=== PATIENT | female | born 1970 | race Caucasian/White ===

== ENCOUNTER 2019-11-20 11:17 | Emergency (ER) | payer MEDICAID ==
[~2019-11-20] VITALS: Ht 157.5 cm; Wt 73.6 kg
[2019-11-20 11:35] VITALS: Ht 157.5 cm; Wt 73.6 kg
[2019-11-20 12:39] LABS: BASOPHILS 0 % (0-2); EOSINOPHILS 0.4 % (0-7); HEMATOCRIT 37.4 % (36.0-48.0); HEMOGLOBIN 12.6 g/dL (12-16); IMMATURE GRANULOCYTES 0.2 % (0-5); LYMPHOCYTES 28.4 % (15-50); MCHC 33.7 g/dL (31.0-37.0); MCV 91.9 fL (80.0-100.0); MEAN PLATELET VOLUME 9.4 fL (7.4-10.4); MONOCYTES 10.3 % (2-11); NEUTROPHILS 60.7 % (40-80); RBC 4.07 10x6/uL (4.00-5.40); RDW 12.8 % (11.5-14.5); WBC 5.5 10x3/uL (4.8-10.8)
[2019-11-20 12:40] LABS: PLATELET COUNT 169 10x3/uL (130-400)
[2019-11-20 13:05] LABS: CALC OSMOLALITY 274 mosm/kg (275-300); CALCIUM 8.6 mg/dL (8.5-10.1); CARBON DIOXIDE 25.5 mmol/L (21.0-32.0); CHLORIDE - SERUM 101 mmol/L (98-107); CREATININE - SERUM 0.9 mg/dL (0.6-1.3); GLUCOSE 77 mg/dL (74-106); POTASSIUM - SERUM 3.4 mmol/L (3.5-5.1); SODIUM 137 mmol/L (136-145); UREA NITROGEN 17 mg/dL (7-18); eGFR NON AFRICAN AMERICAN 70 mL/min (90-120)
[2019-11-20 13:10] LABS: ALBUMIN 3.9 g/dL (3.4-5.0); ALKALINE PHOSPHATASE 69 U/L (30-120); ALT (SGPT) 35 U/L (10-68); BILIRUBIN - TOTAL 0.42 mg/dL (0.2-1.3); PROTEIN - SERUM 7.2 g/dL (6.4-8.2)
[2019-11-20 13:13] LABS: C-REACTIVE PROTEIN < 0.2 mg/dL (0.0-0.9)
[2019-11-20] MEDS ORDERED: CYCLOBENZAPRINE10 MG PO (13:39)
[2019-11-20] MEDS ORDERED: EC-NAPROSYN500 MG PO (13:39)
[2019-11-20 13:44] VITALS: BP 131/69
== END 2019-11-20 13:49 | disposition home or self-care (01) ==
LOC: D.ER 11:17
PROVIDERS: Family Medicine
DX: S39.012A Strain of muscle, fascia and tendon of lower back, initial encounter (principal); R51 Headache; M62.830 Muscle spasm of back; X50.9XXA Other and unspecified overexertion or strenuous movements or postures, initial encounter; Y93.9 Activity, unspecified; Y92.9 Unspecified place or not applicable

== ENCOUNTER 2019-12-20 05:11 | Day surgery (SDC) | payer MEDICAID ==
[~2019-12-20] VITALS: Ht 157.5 cm; Wt 77.1 kg
[~2019-12-20 05:11] MED LIST: AMOXICILLIN125 MG; CYCLOBENZAPRINE10 MG PO; EC-NAPROSYN500 MG PO; GABAPENTIN300 MG PO; GEODON60 MG PO; LIPITOR20 MG PO; LITHIUM CARBON300 MG PO; MOBIC7.5 MG PO; VITAMIN D5000 UNI1 PO; XANAX1 MG PO; ZOLOFT100 MG PO
[2019-12-20] MEDS ORDERED: METHOCARBAMOL750 MG (05:12)
[2019-12-20] MEDS ORDERED: VOLTAREN75 MG PO (05:12)
[2019-12-20 05:35] LABS: HEMATOCRIT 38.8 % (36.0-48.0); HEMOGLOBIN 13.3 g/dL (12-16); MCH 31.6 pg (26.0-34.0); MCHC 34.3 g/dL (31.0-37.0); MCV 92.2 fL (80.0-100.0); MEAN PLATELET VOLUME 9.3 fL (7.4-10.4); RBC 4.21 10x6/uL (4.00-5.40); RDW 12.8 % (11.5-14.5); WBC 6.3 10x3/uL (4.8-10.8)
[2019-12-20 06:24] VITALS: BP 142/95; Ht 157.5 cm; Wt 77.1 kg
[2019-12-20 06:38] LABS: HCG URINE NEGATIVE (NEGATIVE)
[2019-12-20] MEDS ORDERED: OXYCODONE HCL5 M1 PO (07:47)
[2019-12-20] MEDS ORDERED: DURICEF500 MG PO (07:47)
--- NOTE | 2019-12-20 08:48 | NUR ---
0840 PERCOCET 5 MG FOR PAIN. [facility] CALLED IN TO [facility] PER DR. PHILLIPS
--- NOTE | 2019-12-20 15:47 | OP ---
PATIENT NAME: CHERYL RICHEY MEDICAL RECORD: [id number] :68 LOCATION:[facility] ADMISSION DATE: SURGEON: BALTAZAR PHILLIPS DO DATE OF OPERATION: 12/20/2019 PROCEDURE PERFORMED: Left endoscopic carpal tunnel release. PREOPERATIVE DIAGNOSIS: Left carpal tunnel syndrome. POSTOPERATIVE DIAGNOSIS: Left carpal tunnel syndrome. INDICATIONS: Ms. Cheryl Richey is a 49-year-old female who has had left hand pain and numbness. This is waking her up at night and goes to sleep when she drives and does anything really. She was tired of dealing with the pain and wanted something done surgically. On exam, she had a carpal tunnel syndrome with carpal tunnel compression test. 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 SURGEON: Baltazar Phillips DO DESCRIPTION OF PROCEDURE: The patient was taken to the operative suite, laid in supine position, given general anesthetic, given 2 grams of Ancef preoperatively and sedated and LMA was placed. The left upper extremity was then prepped and draped in sterile fashion. Timeout was performed. Everyone was in agreement with correct side, site, patient and procedure. I then began by exsanguinating the left upper extremity with an Esmarch and a tourniquet was inflated to 250 mmHg and was up for 11 minutes. The incision was made centered over the palmaris longus tendon, approximately a centimeter in length. The skin was incised and then Ragnells were used to bluntly dissect down to the median nerve. The fascia from the forearm was released from distal to proximal and then the carpal tunnel was entered distally, first with a hook and then dilators and the sheath put in and the camera was put in. The transverse carpal ligament was viewed and cleaned off with a rasp and a probe to ensure there was no transligamentous nerve branch and there did not appear to be. I then brought the blade and raised it up and transected the transverse carpal ligament. Fat then herniated down into the carpal tunnel, indicating a good release. We then removed the sheath and blade and the camera and then with a Ragnell and scissor spread any remaining fibers left in the transverse carpal ligament and then the tourniquet was let down. I then injected the area with 0.25% Marcaine with epinephrine 10 mL of it. The skin was then closed by Jamil Cornell, certified surgical planning assistant with 5-0 Monocryl in an inverted interrupted fashion, Steri-Strips, Adaptic, 4 x 4, Kerlix and a Coban was lightly wrapped on the wrist. She was then awakened and taken to recovery in stable condition. BLOOD LOSS: Minimal. COMPLICATIONS: None. TRANSINT:[id number] Voice Confirmation ID: [id number] DOCUMENT ID: [id number] OPERATIVE REPORT [id number] CHERYL RICHEY MICHAEL D, DO at 1547 CC: [id number] DICTATION DATE: 12/20/19825 STOPPER SETTER: 12/20/19 1539 [facility] 12/20/19 [facility] [address] [place] [address]
== END 2019-12-20 09:20 | disposition home or self-care (01) ==
LOC: D.OPS 05:11 → D.PAN 07:00 → D.OPS 09:00 → D.PAN 09:00 → D.OPS 09:20
PROVIDERS: Anesthesiology; ATTEND Orthopaedic Surgery
DX: G56.02 Carpal tunnel syndrome, left upper limb (principal); M17.0 Bilateral primary osteoarthritis of knee

== ENCOUNTER 2020-01-20 22:21 | Inpatient (IN) | payer MEDICAID ==
[~2020-01-20] VITALS: Ht 157.5 cm; Wt 80.3 kg
[~2020-01-20 22:21] MED LIST changes: +DURICEF500 MG PO; +METHOCARBAMOL750 MG; +OXYCODONE HCL5 M1 PO; +VOLTAREN75 MG PO
--- NOTE | 2020-01-20 23:29 | NUR ---
DR. WIGGINS NOTIFIED AND REVIEWED PT'S BEHAVIOR AND ASSESSMENT RESULTS. PT IS A LOW RISK PER DR. WIGGINS. DR. WIGGINS STATED TO GIVE RESOURCES TO PT AT TIME OF DISCHARGE. NO FURTHER ORDERS AT THIS TIME. RESOURCES REVIEWED WITH PT AND SHE VERBALIZED UNDERSTANDING.
[2020-01-20 23:43] LABS: HEMATOCRIT 33.8 % (36.0-48.0); HEMOGLOBIN 11.8 g/dL (12-16); LYMPHOCYTES 22.1 % (15-50); MCHC 34.9 g/dL (31.0-37.0); MCV 91.6 fL (80.0-100.0); MEAN PLATELET VOLUME 9.4 fL (7.4-10.4); NEUTROPHILS 70.4 % (40-80); PLATELET COUNT 181 10x3/uL (130-400); RBC 3.69 10x6/uL (4.00-5.40); RDW 12.4 % (11.5-14.5); WBC 8.1 10x3/uL (4.8-10.8)
[2020-01-20 23:54] LABS: ALBUMIN 3.3 g/dL (3.4-5.0); ANION GAP 11.7 mmol/L (8-16); BILIRUBIN - TOTAL 0.34 mg/dL (0.2-1.3); CALCIUM 8.8 mg/dL (8.5-10.1); CARBON DIOXIDE 24.2 mmol/L (21.0-32.0); CREATININE - SERUM 0.9 mg/dL (0.6-1.3); PROTEIN - SERUM 6.9 g/dL (6.4-8.2)
[2020-01-20 23:57] LABS: POTASSIUM - SERUM 2.9 mmol/L (3.5-5.1)
[2020-01-21] VITALS (7 sets, daily range): BP systolic 94–129; BP diastolic 52–69; Ht 157.5 cm; Wt 80.3 kg
--- NOTE | 2020-01-21 00:50 | NUR ---
PT ARRIVED ON UNIT VIA WHEELCHAIR ESCORTED BY ER NURSE AND SPOUSE. ORIENTED TO ROOM AND CALL LIGHT. ASSISTED PT IN CHANGING INTO HER OWN GOWN. IV TO RIGHT AC PATENT WITH NS INFUSING AT 75 ML/HR, AND VANC IVPB INFUSING. LEFT ELBOW SWOLLEN AND WARM TO THE TOUCH. WILL MONITOR FOR NEEDS.
--- NOTE | 2020-01-21 00:59 | NUR ---
GAVE VIT D3 50,000 DOSE (X10 50 CAPSULES) PT TAKES THIS DOSE WEEKLY AND IS DUE.
--- NOTE | 2020-01-21 01:14 | NUR ---
GAVE 40 MEQ K DUR PER THE ELECTOLYTE PROTOCOL. WILL RE-CHECK LEVEL IN AM.
--- NOTE | 2020-01-21 01:52 | NUR ---
ADMISSION ASSESSMENT AND HISTORY COMPLETE.
--- NOTE | 2020-01-21 01:55 | NUR ---
PT STATES THAT "SHE DOSN'T WANT TO BE RESUSCITATED". I TOLD HER TO TALK TO MD IN AM FOR THAT ORDER.
[2020-01-21 06:53] LABS: BASOPHILS 0 % (0-2); EOSINOPHILS 1.3 % (0-7); HEMATOCRIT 33.2 % (36.0-48.0); HEMOGLOBIN 11.5 g/dL (12-16); IMMATURE GRANULOCYTES 0.2 % (0-5); MCH 32.1 pg (26.0-34.0); MCHC 34.6 g/dL (31.0-37.0); MCV 92.7 fL (80.0-100.0); MEAN PLATELET VOLUME 9.8 fL (7.4-10.4); MONOCYTES 10.7 % (2-11); NEUTROPHILS 65.8 % (40-80); PLATELET COUNT 165 10x3/uL (130-400); RBC 3.58 10x6/uL (4.00-5.40); RDW 12.8 % (11.5-14.5); WBC 6.2 10x3/uL (4.8-10.8)
[2020-01-21 07:11] LABS: ALBUMIN 2.8 g/dL (3.4-5.0); ALKALINE PHOSPHATASE 61 U/L (30-120); ALT (SGPT) 27 U/L (10-68); CALC OSMOLALITY 279 mosm/kg (275-300); CALCIUM 8.1 mg/dL (8.5-10.1); CARBON DIOXIDE 26.5 mmol/L (21.0-32.0); CHLORIDE - SERUM 107 mmol/L (98-107); CREATININE - SERUM 0.8 mg/dL (0.6-1.3); GLUCOSE 94 mg/dL (74-106); MAGNESIUM - SERUM 2.1 mg/dL (1.8-2.4); PHOSPHOROUS 5.2 mg/dL (2.5-4.9); PROTEIN - SERUM 5.6 g/dL (6.4-8.2); SODIUM 140 mmol/L (136-145); UREA NITROGEN 16 mg/dL (7-18); eGFR NON AFRICAN AMERICAN 80 mL/min (90-120)
--- NOTE | 2020-01-21 08:11 | NUR ---
ALERT AND ORIENTED. LUNGS CLEAR BILATERALLY. HEART SOUNDS S1 AND S2 HEARD IN ALL GUZMAN. BOWEL SOUNDS ACTIVE X 4. IV TO RIGHT AC PATENT WITHOUT REDNESS. DENIES NEEDS. BED LOW. CALL STALLINGS AND PERSONAL ITEMS IN REACH. WILL CONTINUE TO MONITOR.
--- NOTE | 2020-01-21 12:17 | NUR ---
PATIENT SLEEPING. WILL CONTINUE TO MONITOR.
--- NOTE | 2020-01-21 17:14 | NUR ---
PATIENT STATES WANTS XRAY OF BACK "TO MAKE SURE BACK IS NOT BROKEN." ALYSSA PRUITT NOTIFIED. STATES NOT ORDERING XRAY AT THIS TIME.
--- NOTE | 2020-01-21 20:00 | NUR ---
RESTING IN BED EYES CLOSED, AROUSED EASILY BUT REMAINS SLEEPY, SEE SHIFT ASSESSMENT, CALL LIGHT IN REACH, NO C/O OR REQUEST AT THIS TIME
--- NOTE | 2020-01-21 22:00 | NUR ---
SONAL NOTIFIED OF PT SLEEPING SINCE THIS NURS ARIVAL AND REPORTED MOST OF DAY, AND GETTING SCHEDULED DILAUDID Q 4HRS WITH XANAX,& NEURONTIN, ORDER RECIEVED TO CHANGE DILAUDID TO PRN
--- NOTE | 2020-01-22 03:31 | NUR ---
AWAKE INSISTING ON GOING OUT TO CHECK ON HER CAR IN PARKING LOT, STATES DIANNE IS MISSING AND NEEDS TO GO CHECK ON CAR, SECURITY NOTIFIED AND WALKED HER TO PARKING LOT AND BACK TO ROOM
[2020-01-22 05:25] VITALS: BP 119/55
--- NOTE | 2020-01-22 07:51 | NUR ---
PT IV IN RT AC STARTED LEAKING AND NO LONGER INTACT, ATTEMPTED IV ACCESS IN RT ARM UNSUCCESSFUL, WILL CONSULT VASCULAR ACCESS
[2020-01-22 08:00] VITALS: BP 110/76
[2020-01-22 10:34] LABS: BASOPHILS 0.2 % (0-2); EOSINOPHILS 1.4 % (0-7); HEMOGLOBIN 11.8 g/dL (12-16); IMMATURE GRANULOCYTES 0.4 % (0-5); LYMPHOCYTES 25.4 % (15-50); MCH 30.7 pg (26.0-34.0); MCHC 31.9 g/dL (31.0-37.0); MEAN PLATELET VOLUME 9.9 fL (7.4-10.4); NEUTROPHILS 66.6 % (40-80); RBC 3.84 10x6/uL (4.00-5.40); WBC 5.7 10x3/uL (4.8-10.8)
[2020-01-22 10:42] LABS: CALC OSMOLALITY 279 mosm/kg (275-300); CARBON DIOXIDE 24.5 mmol/L (21.0-32.0); CHLORIDE - SERUM 108 mmol/L (98-107); CREATININE - SERUM 0.7 mg/dL (0.6-1.3); GLUCOSE 95 mg/dL (74-106); POTASSIUM - SERUM 4.1 mmol/L (3.5-5.1); SODIUM 141 mmol/L (136-145); eGFR NON AFRICAN AMERICAN > 90 mL/min (90-120)
[2020-01-22 10:43] LABS: PHOSPHOROUS 3.2 mg/dL (2.5-4.9); UREA NITROGEN 10 mg/dL (7-18)
[2020-01-22 10:45] LABS: MCV 96.4 fL (80.0-100.0); PLATELET COUNT 210 10x3/uL (130-400)
[2020-01-22 12:42] VITALS: BP 104/57
--- NOTE | 2020-01-22 12:47 | NUR ---
I have reviewed this patient and I concur with the Shift Assessment completed by the Licensed Practical Nurse today this shift.
[2020-01-22 16:00] VITALS: BP 110/49
[2020-01-22 20:00] VITALS: BP 99/62
--- NOTE | 2020-01-22 20:00 | NUR ---
LYING IN BED. ALERT AND ORIENTED X4. LT ELBOW IS RED AND SWOLLEN AND ELEVATED ON PILLOW. RATES PAIN IN ELBOW 7. NS @ 75 MLHR INFUSING IN RT UPPER ARM. AMBULATORY. RESP EVEN AND NONLABORED. NO DISTRESS. SR ELEVATED X2. VISITOR AT BEDSIDE. CL IN REACH.
--- NOTE | 2020-01-22 22:18 | NUR ---
MEDICATED WITH DILAUDID FOR C/O PAIN IN LT ELBOW. HAS BEEN AMBULATING IN HALLWAY.
[2020-01-23] VITALS: BP 112/72
--- NOTE | 2020-01-23 03:19 | NUR ---
HAS RESTED WELL SO FAR THIS SHIFT. NO DISTRESS. CL IN REACH.
[2020-01-23 04:00] VITALS: BP 120/63
--- NOTE | 2020-01-23 04:34 | NUR ---
PT UP TO BR TO VOID. HAS BEEN ASLEEP UNTIL NOW. PT TELLS MINE INSPECTOR THAT SHE IS HURTING WORSE THIS MORNING AND THAT THE NURSE MUST NOT BE DOING HER JOB BECAUSE NOBODY WOKE HER UP FOR PAIN MEDS LAST NIGHT AND THAT THEY HAVE BEEN. CONFRONTED PT ABOUT THIS ACCUSATION. INFORMED PT THAT HER PAIN MED IS PRN AND SHE HAS TO ASK FOR IT AND THAT NO NURSE WOULD JUST GO IN AND GIVE HER PAIN MEDS EVERY TIME THEY ARE DUE AND ESPECIALLY WHEN SHE IS SLEEPING. MEDICATED WITH DILAUDID AT THIS TIME FOR C/O PAIN IN LT ELBOW. PT SLEPT WELL UNTIL NOW. CL IN REACH. PT THEN APOLOGIZED TO THIS LEASING MACHINE TENDER.
[2020-01-23 06:20] LABS: BASOPHILS 0.2 % (0-2); EOSINOPHILS 1.6 % (0-7); HEMATOCRIT 33.3 % (36.0-48.0); HEMOGLOBIN 10.7 g/dL (12-16); IMMATURE GRANULOCYTES 0.2 % (0-5); LYMPHOCYTES 32.2 % (15-50); MCH 30.8 pg (26.0-34.0); MCHC 32.1 g/dL (31.0-37.0); MEAN PLATELET VOLUME 9.5 fL (7.4-10.4); MONOCYTES 9.6 % (2-11); NEUTROPHILS 56.2 % (40-80); PLATELET COUNT 186 10x3/uL (130-400); RBC 3.47 10x6/uL (4.00-5.40); RDW 12.9 % (11.5-14.5); WBC 4.4 10x3/uL (4.8-10.8)
[2020-01-23 06:27] LABS: ANION GAP 9.3 mmol/L (8-16); CALCIUM 8.2 mg/dL (8.5-10.1); CARBON DIOXIDE 27.1 mmol/L (21.0-32.0); PHOSPHOROUS 3.3 mg/dL (2.5-4.9)
[2020-01-23 06:28] LABS: CREATININE - SERUM 0.9 mg/dL (0.6-1.3); POTASSIUM - SERUM 3.4 mmol/L (3.5-5.1)
--- NOTE | 2020-01-23 07:56 | NUR ---
PT K+ IS 3.4 THIS MORNING, WILL ADMINISTER PRN K+ WITH SCHEDULED MORNING MEDS. NO NEEDS VOICED AT THIS TIME. CONTINUE WITH PLAN OF CARE
[2020-01-23 09:15] VITALS: BP 142/72
[2020-01-23 12:36] VITALS: BP 94/57
[2020-01-23 17:01] VITALS: BP 131/77
[2020-01-23 20:00] VITALS: BP 142/88
--- NOTE | 2020-01-23 23:02 | NUR ---
ASSESSED AT THE BEGINNING OF THE SHIFT. PT IS ALERT AND ORIENTED, ABLE TO VERBALIZE NEEDS. LEFT ELBOW HAS DECREASED EDEMA AND SHE HAS NOTICED IT. SHE HAS BEEN UP TO THE BATHROOM TO SHOWER AND ALSO UP TO GO OUTSIDE FOR SMOKING. THERE WAS A FRIEND VISITING BUT HAVE NOT SEEN THEM FOR A WHILE.
--- NOTE | 2020-01-24 01:17 | NUR ---
AWAKENED TO GO TO THE BATHROOM AND REQUESTED MORE PAIN MED. STATES HER ARM IS KILLING HER. FRIEND IS NOW IN THE ROOM SLEEPING.
[2020-01-24 04:00] VITALS: BP 107/61
[2020-01-24 05:35] LABS: BASOPHILS 0.2 % (0-2); HEMATOCRIT 33.5 % (36.0-48.0); HEMOGLOBIN 10.6 g/dL (12-16); IMMATURE GRANULOCYTES 0.2 % (0-5); MCH 30.5 pg (26.0-34.0); MCHC 31.6 g/dL (31.0-37.0); MCV 96.5 fL (80.0-100.0); MEAN PLATELET VOLUME 9.6 fL (7.4-10.4); MONOCYTES 8.3 % (2-11); NEUTROPHILS 62.3 % (40-80); PLATELET COUNT 187 10x3/uL (130-400); RBC 3.47 10x6/uL (4.00-5.40); RDW 12.9 % (11.5-14.5)
[2020-01-24 05:51] LABS: ANION GAP 9.6 mmol/L (8-16); CALCIUM 8.6 mg/dL (8.5-10.1); CARBON DIOXIDE 27.6 mmol/L (21.0-32.0); MAGNESIUM - SERUM 2.1 mg/dL (1.8-2.4)
[2020-01-24 06:04] LABS: PHOSPHOROUS 5.2 mg/dL (2.5-4.9); POTASSIUM - SERUM 4.2 mmol/L (3.5-5.1)
--- NOTE | 2020-01-24 08:00 | NUR ---
ALERT AND ORIENTED X4. ERRYTHEMA AND WARMTH NOTED TO LEFT ARM WITH RADIAL PULSES NOTED. DILAUDID GIVEN PRN FOR PAIN MANAGEMENT 03/02. IVF INFUSING AT PREWCRIBED RATE TO RT. ARM WITH NO S/S OF INFECTION/INFILTRATION.ENCOURAGED TO USE CALL LIGHT FOR ASSSIST.
[2020-01-24 09:13] VITALS: BP 129/54
[2020-01-24 11:47] VITALS: BP 108/65
[2020-01-24 15:42] VITALS: BP 105/67
[2020-01-24 20:00] VITALS: BP 114/72
[2020-01-25] VITALS: BP 112/68
--- NOTE | 2020-01-25 03:03 | NUR ---
ASLEEP AT THIS TIME. EARLIER THE PHARM. HAD DC'D HER PAIN MED AND MD WAS CALLED TO RENEW IT.WHILE AWAKE SHE WAS NOTICING HER ARM WAS RED WHERE THE REDNESS HAD GONE AWAY. WILL MONITOR TO SEE IF IT WAS JUST HOW SHE WAS SLEEPING.
[2020-01-25 04:00] VITALS: BP 114/65
[2020-01-25 06:54] LABS: CALC OSMOLALITY 275 mosm/kg (275-300); CALCIUM 8.2 mg/dL (8.5-10.1); CARBON DIOXIDE 28.6 mmol/L (21.0-32.0); CHLORIDE - SERUM 105 mmol/L (98-107); CREATININE - SERUM 0.8 mg/dL (0.6-1.3); GLUCOSE 95 mg/dL (74-106); MAGNESIUM - SERUM 2.2 mg/dL (1.8-2.4); PHOSPHOROUS 4.7 mg/dL (2.5-4.9); POTASSIUM - SERUM 3.8 mmol/L (3.5-5.1); SODIUM 139 mmol/L (136-145); UREA NITROGEN 7 mg/dL (7-18); eGFR NON AFRICAN AMERICAN 80 mL/min (90-120)
[2020-01-25 07:01] LABS: BASOPHILS 0.4 % (0-2); EOSINOPHILS 1.8 % (0-7); HEMATOCRIT 33.9 % (36.0-48.0); IMMATURE GRANULOCYTES 0.5 % (0-5); LYMPHOCYTES 23.7 % (15-50); MCH 30.9 pg (26.0-34.0); MCHC 32.4 g/dL (31.0-37.0); MCV 95.2 fL (80.0-100.0); MEAN PLATELET VOLUME 9.2 fL (7.4-10.4); MONOCYTES 9.8 % (2-11); NEUTROPHILS 63.8 % (40-80); PLATELET COUNT 197 10x3/uL (130-400); RBC 3.56 10x6/uL (4.00-5.40); RDW 12.7 % (11.5-14.5); WBC 5.6 10x3/uL (4.8-10.8)
--- NOTE | 2020-01-25 07:20 | NUR ---
BEDSIDE REPORT RECIEVED, PT A&O X3, DENIES NEEDS, BED LOWEST POSITION, CALL LIGHT IN REACH, ASSESSMENT COMPLETE, BREATHING EVEN UNLABORED, IV TO RIGHT UPPER ARM PATENT RUNNING KVO, WILL CONTINUE TO MONITOR
[2020-01-25] MEDS ORDERED: PROBIOTIC250 MG PO (07:54)
[2020-01-25] MEDS ORDERED: BACTRIM DS TAB1 EAC1 PO (07:54)
[2020-01-25 09:16] VITALS: BP 139/77
--- NOTE | 2020-01-25 12:32 | NUR ---
TYLENOL GIVEN FOR HEADACHE
[2020-01-25 13:17] VITALS: BP 126/80
--- NOTE | 2020-01-25 15:24 | NUR ---
I have reviewed this patient and I concur with the Shift Assessment completed by the Licensed Practical Nurse today this shift.
[2020-01-25 16:50] VITALS: BP 103/65
[2020-01-25 20:00] VITALS: BP 122/73
[2020-01-26] VITALS: BP 123/67
[2020-01-26 04:00] VITALS: BP 129/78
--- NOTE | 2020-01-26 04:49 | NUR ---
RESTING WITH NO NEEDS AT THIS TIME. IV TO RIGHT UPPER ARM INTACT WITH NS AT 10ML/HR DILAUDID 0.5 Q 4 FOR PAIN CONTROL. CALL LIGHT AND WATER IN REACH.
--- NOTE | 2020-01-26 08:40 | NUR ---
PT ALERT X 4. BREATH SOUNDS CLEAR BILAT. IV TO RIGHT UPPER ARM, PATENT, DRESSING CDI. SLIGHT REDDNESS TO LEFT ARM. PT REPORTING PAIN OF 7/10, MEDICATED PER ORDERS, WILL CONTINUE TO MONITOR. BED LOW, CALL LIGHT IN REACH. NO OTHER NEEDS AT THIS TIME.
[2020-01-26 09:01] LABS: BASOPHILS 0.2 % (0-2); EOSINOPHILS 1.1 % (0-7); HEMATOCRIT 34.1 % (36.0-48.0); IMMATURE GRANULOCYTES 0.5 % (0-5); LYMPHOCYTES 21.8 % (15-50); MCHC 32.3 g/dL (31.0-37.0); MCV 96.1 fL (80.0-100.0); MEAN PLATELET VOLUME 9.1 fL (7.4-10.4); MONOCYTES 8.1 % (2-11); NEUTROPHILS 68.3 % (40-80); PLATELET COUNT 204 10x3/uL (130-400); RBC 3.55 10x6/uL (4.00-5.40); RDW 12.7 % (11.5-14.5); WBC 5.6 10x3/uL (4.8-10.8)
[2020-01-26 09:02] VITALS: BP 169/99
[2020-01-26 09:26] LABS: ANION GAP 9.6 mmol/L (8-16); CALCIUM 8.7 mg/dL (8.5-10.1); CARBON DIOXIDE 29.6 mmol/L (21.0-32.0); CREATININE - SERUM 0.9 mg/dL (0.6-1.3); MAGNESIUM - SERUM 2.2 mg/dL (1.8-2.4); PHOSPHOROUS 4.4 mg/dL (2.5-4.9); POTASSIUM - SERUM 4.2 mmol/L (3.5-5.1)
--- NOTE | 2020-01-26 09:38 | NUR ---
PT CONFUSED TO TIME AND SITUATION. BREATH SOUNDS CLEAR BILAT. IV TO LEFT AC TAKEN DC'D, TIP INTACT. RESITED TO LEFT HAND, 22G. PT REPORTING PAIN OF 7/10 FOLLOWING IV PLACEMENT, WILL CONTINUE TO MONITOR. BED LOW, CALL LIGHT IN REACH. NO OTHER NEEDS AT THIS TIME.
[2020-01-26 12:41] VITALS: BP 137/63
[2020-01-26] MEDS ORDERED: PERCOCET 5-3251 TAB PO (13:03)
--- NOTE | 2020-01-26 15:35 | NUR ---
DISCHARGE PAPERWORK SIGNED, ALL QUESTIONS ANSWERED. IV TO RIGHT UPPER ARM DC'D, TIP INTACT. WAITING ON RIDE
--- NOTE | 2020-01-26 19:36 | NUR ---
WASTED 1.5ML OF HYDROMORPHONE. WITNESSED BY GAVINO MONTANO
== END 2020-01-26 16:11 | disposition home or self-care (01) | DRG 603 ==
LOC: D.ER 22:21 → D.MS 01-21 00:01
PROVIDERS: Family Medicine; ADMIT Family Medicine; ATTEND Family Medicine
DX: L03.114 Cellulitis of left upper limb (principal); E87.1 Hypo-osmolality and hyponatremia; F17.203 Nicotine dependence unspecified, with withdrawal; E87.6 Hypokalemia; E78.5 Hyperlipidemia, unspecified; F41.8 Other specified anxiety disorders; D64.9 Anemia, unspecified; F31.9 Bipolar disorder, unspecified